=== PATIENT | female | born 1995 | race Caucasian/White ===

== ENCOUNTER 2018-03-06 23:02 | Emergency (ER) | END 2018-03-07 01:18 | disposition home or self-care (01) ==

== ENCOUNTER 2018-12-19 21:42 | Emergency (ER) | payer MEDICAID ==
[~2018-12-19] VITALS: Ht 160 cm; Wt 72.6 kg
[~2018-12-19 21:42] MED LIST: IBUP-1542 PO; PREN1TAB13 PO
[2018-12-19 21:50] VITALS: Ht 160 cm; Wt 72.6 kg
[2018-12-20 00:55] VITALS: BP 110/69; PULSE 72; RESP 18
== END 2018-12-20 00:56 | disposition home or self-care (01) ==
LOC: FTE 21:42
DX: O26.892 Other specified pregnancy related conditions, second trimester (principal); R25.1 Tremor, unspecified; V49.59XA Passenger injured in collision with other motor vehicles in traffic accident, initial encounter; Z04.1 Encounter for examination and observation following transport accident; Z3A.23 23 weeks gestation of pregnancy

== ENCOUNTER 2018-12-19 21:59 | Outpatient (CLI) | payer MEDICAID ==
[~2018-12-19] VITALS: Ht 160 cm; Wt 72.7 kg
[2018-12-19 22:25] VITALS: Ht 160 cm; Wt 72.7 kg
[2018-12-19 22:30] VITALS: BP 126/58; PULSE 78; RESP 20
== END 2018-12-19 23:58 | disposition home or self-care (01) ==
LOC: OBT 21:59 → L-D 21:59 → OBT 23:58
PROVIDERS: ATTEND Obstetrics & Gynecology
DX: O35.9XX0 Maternal care for (suspected) fetal abnormality and damage, unspecified, not applicable or unspecified (principal); Z3A.22 22 weeks gestation of pregnancy; V43.62XA Car passenger injured in collision with other type car in traffic accident, initial encounter; Y92.410 Unspecified street and highway as the place of occurrence of the external cause
CPT/HCPCS: 76815; 86850; 86900; 86901; Z7500; G0463